=== PATIENT | female | born 1995 | race African-American/Black ===

== ENCOUNTER 2017-03-24 08:51 | Emergency (ER) | payer OTHER ==
[~2017-03-24] VITALS: Ht 165.1 cm; Wt 113.6 kg
[2017-03-24 10:06] LABS: GLUCOSE, URINE (UA) NEGATIVE (NEGATIVE); KETONES,URINE NEGATIVE (NEGATIVE); LEUKOCYTE ESTERASE ,URINE NEGATIVE (NEGATIVE); OCCULT BLOOD,URINE NEGATIVE (NEGATIVE); PH,URINE 6.5 (5.0-8.0); PROTEIN,URINE NEGATIVE (NEGATIVE)
[2017-03-24 10:18] LABS: APPEARANCE,URINE HAZY (CLEAR)
[2017-03-24 10:19] LABS: RBC,URINE None Seen /HPF (0-2); SQUAMOUS EPITHELIAL CELL,UR Few /LPF (None Seen); WBC,URINE 0-2 /HPF (0-5)
[2017-03-24 10:45] VITALS: BP 132/88
== END 2017-03-24 11:21 | disposition home or self-care (01) ==
LOC: EMS 08:56
DX: O26.891 Other specified pregnancy related conditions, first trimester (principal); A74.9 Chlamydial infection, unspecified; Z77.21 Contact with and (suspected) exposure to potentially hazardous body fluids; Z3A.01 Less than 8 weeks gestation of pregnancy
CPT/HCPCS: 99284

== ENCOUNTER 2019-03-30 12:02 | Emergency (ER) | payer SELFPAY | END 2019-03-30 12:58 | disposition left against medical advice (07) | LOC: EMS 12:02 | DX: N39.0 Urinary tract infection, site not specified (principal); Z53.21 Procedure and treatment not carried out due to patient leaving prior to being seen by health care provider ==

== ENCOUNTER 2019-07-22 09:13 | Emergency (ER) | payer OTHER ==
[~2019-07-22] VITALS: Ht 165.1 cm; Wt 118.2 kg
[2019-07-22 10:12] LABS: APPEARANCE,URINE CLOUDY (CLEAR); BILIRUBIN,URINE NEGATIVE (NEGATIVE); GLUCOSE, URINE (UA) NEGATIVE (NEGATIVE); KETONES,URINE NEGATIVE (NEGATIVE); LEUKOCYTE ESTERASE ,URINE TRACE (NEGATIVE); NITRATE,URINE NEGATIVE (NEGATIVE); OCCULT BLOOD,URINE NEGATIVE (NEGATIVE); PH,URINE 5.5 (5.0-8.0); PROTEIN,URINE NEGATIVE (NEGATIVE); UROBILINOGEN,URINE 0.2 mg/dL (<=1.0)
[2019-07-22 10:23] LABS: BACTERIA,URINE None Seen /HPF (None Seen); RBC,URINE None Seen /HPF (0-2); WBC,URINE 0-2 /HPF (0-5)
[2019-07-22 10:24] LABS: SQUAMOUS EPITHELIAL CELL,UR Moderate /LPF (None Seen); STARCH,URINE Many /LPF (None Seen)
[2019-07-22 11:00] VITALS: BP 144/85
== END 2019-07-22 12:16 | disposition home or self-care (01) ==
LOC: EMS 09:14
DX: N76.0 Acute vaginitis (principal); B96.89 Other specified bacterial agents as the cause of diseases classified elsewhere; R03.0 Elevated blood-pressure reading, without diagnosis of hypertension